=== PATIENT | male | born 1950 | race Caucasian/White ===

== ENCOUNTER 2023-05-06 08:54 | Inpatient (IN) | payer MEDICARE ==
[2023-05-06 09:21] LABS: #Monocytes 0.8 thou/uL (0.11-0.59); #Neutrophils 19.7 thou/uL (1.40-6.50); %Basophils 0.1 % (0.0-1.0); %Lymphocytes 3.4 % (21.0-51.0); %Monocytes 3.7 % (0.0-10.0); %Neutrophils 91.5 % (42.0-75.0); Mean Corpuscular HGB CONC 33.7 g/dL (32.0-36.0); Mean Corpuscular Hemoglobin 32.3 pg (27.0-31.0); Mean Corpuscular Volume 95.6 fl (78.0-98.0); Platelet Count 252 10x3/uL (130-400); RBC Distribution Width 15.9 % (11.5-14.5); Red Blood Cell (RBC) Count 3.41 mill/uL (4.70-6.10); White Blood Cell (WBC) Count 21.5 10x3/uL (4.8-10.8)
[2023-05-06] MEDS ORDERED: Cefepime 2 GM VIAL ONE (09:33)
[2023-05-06 09:52] LABS: ALT (SGPT) 20 U/L (8-55); AST (SGOT) 77 U/L (5-34); Albumin 2.6 g/dL (3.4-4.8); Alkaline Phosphatase 190 U/L (40-110); Anion Gap 15 mmol/L (10-20); BUN (Urea Nitrogen) 19 mg/dL (8.4-25.7); Bilirubin, Total 1.1 mg/dL (0.2-1.2); Calc. Creatinine Clearance 0 mL/min (70-130); Calcium 8.5 mg/dL (7.8-10.44); Carbon Dioxide 24 mmol/L (23-31); Chloride 93 mmol/L (98-107); Estimated GFR 65; Globulin 3.8 g/dL (2.4-3.5); Glucose 101 mg/dL (83-110); Lipase 34 U/L (8-78); Magnesium 1.8 mg/dL (1.6-2.6); Potassium 4.1 mmol/L (3.5-5.1); Protein, Total 6.4 g/dL (5.8-8.1); Sodium 128 mmol/L (136-145)
[2023-05-06 09:53] LABS: INR-International Normal Ratio 2.9; PTT 55.9 sec (22.9-36.1)
[2023-05-06] MEDS ORDERED: Vancomycin 1.5 GRAM/300 ML BAG 1.5 GM in Premix Bag 1 BAG IVPB SCH (10:00)
[2023-05-06] MEDS ORDERED: Acetaminophen 500 MG TAB ONE (10:50)
[2023-05-06 11:15] LABS: Bacteria/HPF None Seen HPF (None Seen); Bilirubin Negative (Negative); Blood, Urine 3+ (Negative); CAUTI Indications for Culture Alt mental st,lethar; Clarity Clear (Clear); Glucose, Urine (Dipstick) Normal (Negative); Ketone, Urine Negative (Negative); Leukocyte 25 Leu/uL (Negative); Nitrite Negative (Negative); Protein, Urine (Dipstick) 30 mg/dL (Neg-Trace); Specific Gravity, Urine 1.038 (1.002-1.036); Squamous Epithelial 0-3 HPF (0-3); Urobilinogen Normal mg/dL (Less than 2); WBC/HPF 0-3 HPF (0-3); pH, Urine 5.5 (5.0-9.0)
[2023-05-06 11:19] LABS: Urine Culture Reflex No No
[2023-05-06] MEDS ORDERED: Ondansetron PF 4 MG/2 ML Vial IVP PRN (11:38)
[2023-05-06] MEDS ORDERED: traZODone HCl 50 MG TAB PO PRN (11:38)
[2023-05-06] MEDS ORDERED: Guaifenesin DM 100-10/5 ML UDCUP PO PRN (11:38)
[2023-05-06] MEDS ORDERED: Furosemide 100 MG in Sodium Chloride 0.9% 100 ML IVPB SCH ×2 (13:00→16:28)
[2023-05-06] MEDS ORDERED: Amiodarone 150 MG, Admixture Fee 1 EACH in Dextrose 5% in Water 100 ML IVPB SCH ×2 (13:30→13:45)
[2023-05-06] MEDS: Amiodarone 450 MG in Dextrose 5% in Water 250 ML IVPB SCH ×2 (13:56→22:55)
[2023-05-06] MEDS: Midodrine HCl 5 MG TAB PO SCH ×2 (15:10→20:12)
[2023-05-06 16:11] LABS: Lactic Acid 4.4 mmol/L (0.5-2.2)
[2023-05-06] MEDS: Furosemide 100 MG, Admixture Fee 1 EACH in Sodium Chloride 0.9% 90 ML IVPB SCH (16:57)
[2023-05-06] MEDS: Senokot S 8.6-50 MG TAB PO SCH (20:12)
[2023-05-06] MEDS: Apixaban 5 MG TAB PO SCH (20:13)
[2023-05-06] MEDS: Transdermal Patch Removal TOP SCH (20:13)
[2023-05-06] MEDS ORDERED: Cefepime 1 GM in Sodium Chloride 0.9% 100 ML IVPB SCH (21:00)
[2023-05-06] MEDS: Vancomycin 1 GM in Premix Bag 1 BAG IVPB SCH (22:55)
[2023-05-06] MEDS: Acetaminophen 325 MG TAB PO PRN (23:04)
[2023-05-07] MEDS: Acetaminophen 325 MG TAB PO PRN ×4 (03:09→20:23)
[2023-05-07 03:43] LABS: #Eosinphils 0.1 thou/uL (0.0-0.7); #Monocytes 0.9 thou/uL (0.11-0.59); #Neutrophils 14.3 thou/uL (1.40-6.50); %Basophils 0.2 % (0.0-1.0); %Eosinophils 0.5 % (0.0-10.0); %Lymphocytes 8.1 % (21.0-51.0); %Monocytes 5.2 % (0.0-10.0); %Neutrophils 85.1 % (42.0-75.0); Hemoglobin 9.9 g/dL (14.0-18.0); Mean Corpuscular HGB CONC 33.2 g/dL (32.0-36.0); Mean Corpuscular Hemoglobin 32.6 pg (27.0-31.0); Mean Platelet Volume 9.4 fL (7.4-10.4); Platelet Count 216 10x3/uL (130-400); RBC Distribution Width 16.2 % (11.5-14.5); Red Blood Cell (RBC) Count 3.04 mill/uL (4.70-6.10); White Blood Cell (WBC) Count 16.8 10x3/uL (4.8-10.8)
[2023-05-07 04:05] LABS: Anion Gap 14 mmol/L (10-20); BUN (Urea Nitrogen) 22 mg/dL (8.4-25.7); Calc. Creatinine Clearance 104 mL/min (70-130); Calcium 8.5 mg/dL (7.8-10.44); Carbon Dioxide 22 mmol/L (23-31); Chloride 96 mmol/L (98-107); Estimated GFR 75; Glucose 107 mg/dL (83-110); Potassium 4.1 mmol/L (3.5-5.1); Sodium 128 mmol/L (136-145)
[2023-05-07] MEDS: Senokot S 8.6-50 MG TAB PO SCH ×2 (07:56→20:24)
[2023-05-07] MEDS: Midodrine HCl 5 MG TAB PO SCH ×3 (07:56→20:24)
[2023-05-07] MEDS: Lidocaine 4% Patch TD SCH (07:57)
[2023-05-07] MEDS: Bisacodyl 10 MG SUPP PR PRN (07:57)
[2023-05-07] MEDS: Apixaban 5 MG TAB PO SCH ×2 (07:57→20:23)
[2023-05-07] MEDS: Cefepime 2 GM in Sodium Chloride 0.9% 100 ML IVPB SCH ×2 (07:57→20:24)
[2023-05-07] MEDS ORDERED: Digoxin 0.5 MG/2 ML AMP SLOW IVP SCH (09:30)
[2023-05-07] MEDS: Vancomycin 1 GM in Premix Bag 1 BAG IVPB SCH (09:53)
[2023-05-07] MEDS ORDERED: Mineral Oil ENEMA PR SCH (10:45)
[2023-05-07] MEDS: Amiodarone 450 MG in Dextrose 5% in Water 250 ML IVPB SCH (14:43)
[2023-05-07] MEDS ORDERED: Albumin 25% 25 GM/100 ML BOT IVPB SCH ×2 (16:30→18:00)
[2023-05-07] MEDS ORDERED: Oxybutynin 5 MG TAB PO SCH (17:00)
[2023-05-08] MEDS: Albumin 25% 25 GM/100 ML BOT IVPB SCH ×4 (00:04→17:30)
[2023-05-08] MEDS: Transdermal Patch Removal TOP SCH ×2 (00:32→21:29)
[2023-05-08] MEDS: Acetaminophen 325 MG TAB PO PRN ×2 (04:00→08:19)
[2023-05-08 04:40] LABS: #Eosinphils 0.2 thou/uL (0.0-0.7); #Monocytes 0.8 thou/uL (0.11-0.59); #Neutrophils 9.6 thou/uL (1.40-6.50); %Basophils 0.3 % (0.0-1.0); %Eosinophils 1.4 % (0.0-10.0); %Lymphocytes 9.1 % (21.0-51.0); %Monocytes 6.9 % (0.0-10.0); %Neutrophils 81.7 % (42.0-75.0); Hemoglobin 8.9 g/dL (14.0-18.0); Mean Corpuscular HGB CONC 33.1 g/dL (32.0-36.0); Mean Corpuscular Hemoglobin 31.9 pg (27.0-31.0); Mean Corpuscular Volume 96.4 fl (78.0-98.0); Mean Platelet Volume 9.4 fL (7.4-10.4); Platelet Count 182 10x3/uL (130-400); Red Blood Cell (RBC) Count 2.79 mill/uL (4.70-6.10); White Blood Cell (WBC) Count 11.7 10x3/uL (4.8-10.8)
[2023-05-08 05:02] LABS: Anion Gap 12 mmol/L (10-20); BUN (Urea Nitrogen) 27 mg/dL (8.4-25.7); Calc. Creatinine Clearance 88 mL/min (70-130); Calcium 8.7 mg/dL (7.8-10.44); Carbon Dioxide 28 mmol/L (23-31); Chloride 93 mmol/L (98-107); Estimated GFR 62; Glucose 94 mg/dL (83-110); Potassium 3.7 mmol/L (3.5-5.1); Sodium 129 mmol/L (136-145)
[2023-05-08] MEDS: Amiodarone 450 MG in Dextrose 5% in Water 250 ML IVPB SCH ×2 (05:05→19:47)
[2023-05-08] MEDS: Lidocaine 4% Patch TD SCH (08:19)
[2023-05-08] MEDS: Cefepime 2 GM in Sodium Chloride 0.9% 100 ML IVPB SCH ×2 (08:19→22:27)
[2023-05-08] MEDS: Senokot S 8.6-50 MG TAB PO SCH ×2 (08:19→21:28)
[2023-05-08] MEDS: Midodrine HCl 5 MG TAB PO SCH ×3 (08:20→21:27)
[2023-05-08] MEDS: Oxybutynin 5 MG TAB PO SCH (08:20)
[2023-05-08] MEDS: VANCOMYCIN 1.25 GM/250 ML BAG 1.25 GM in Premix Bag 1 BAG IVPB SCH (10:21)
[2023-05-08] MEDS ORDERED: ALPRAZolam 0.25 MG TAB PO SCH ×2 (11:00→21:00)
[2023-05-08] MEDS ORDERED: Midodrine HCl 5 MG TAB PO SCH (17:24)
[2023-05-08] MEDS: ALPRAZolam 0.25 MG TAB PO SCH (21:27)
[2023-05-09] MEDS: Furosemide 100 MG, Admixture Fee 1 EACH in Sodium Chloride 0.9% 90 ML IVPB SCH (02:41)
[2023-05-09 03:47] LABS: #Eosinphils 0.2 thou/uL (0.0-0.7); #Monocytes 0.9 thou/uL (0.11-0.59); #Neutrophils 7.5 thou/uL (1.40-6.50); %Basophils 0.3 % (0.0-1.0); %Lymphocytes 12.4 % (21.0-51.0); %Monocytes 9.3 % (0.0-10.0); %Neutrophils 75.3 % (42.0-75.0); Hemoglobin 7.1 g/dL (14.0-18.0); Mean Corpuscular HGB CONC 32.7 g/dL (32.0-36.0); Mean Corpuscular Hemoglobin 32.3 pg (27.0-31.0); Mean Corpuscular Volume 98.6 fl (78.0-98.0); Mean Platelet Volume 9.2 fL (7.4-10.4); Platelet Count 158 10x3/uL (130-400); RBC Distribution Width 16.2 % (11.5-14.5); White Blood Cell (WBC) Count 9.9 10x3/uL (4.8-10.8)
[2023-05-09 04:11] LABS: Anion Gap 16 mmol/L (10-20); BUN (Urea Nitrogen) 30 mg/dL (8.4-25.7); Calc. Creatinine Clearance 71 mL/min (70-130); Calcium 8.7 mg/dL (7.8-10.44); Carbon Dioxide 25 mmol/L (23-31); Chloride 96 mmol/L (98-107); Estimated GFR 48; Glucose 106 mg/dL (83-110); Potassium 3.5 mmol/L (3.5-5.1); Sodium 133 mmol/L (136-145)
[2023-05-09 06:51] LABS: Hemoglobin 7.4 g/dL (14.0-18.0); Mean Corpuscular HGB CONC 32.9 g/dL (32.0-36.0); Mean Corpuscular Hemoglobin 32.5 pg (27.0-31.0); Mean Corpuscular Volume 98.7 fl (78.0-98.0); Mean Platelet Volume 9.5 fL (7.4-10.4); Platelet Count 145 10x3/uL (130-400); RBC Distribution Width 16.4 % (11.5-14.5); Red Blood Cell (RBC) Count 2.28 mill/uL (4.70-6.10); White Blood Cell (WBC) Count 9.3 10x3/uL (4.8-10.8)
[2023-05-09] MEDS: Cefepime 1 GM in Sodium Chloride 0.9% 100 ML IVPB SCH ×2 (08:28→21:02)
[2023-05-09] MEDS: Lidocaine 4% Patch TD SCH (08:29)
[2023-05-09] MEDS: ALPRAZolam 0.25 MG TAB PO SCH ×2 (08:29→21:04)
[2023-05-09] MEDS: Acetaminophen 325 MG TAB PO PRN (08:30)
[2023-05-09] MEDS: Midodrine HCl 5 MG TAB PO SCH ×3 (08:30→21:03)
[2023-05-09] MEDS: Senokot S 8.6-50 MG TAB PO SCH ×2 (08:31→21:03)
[2023-05-09] MEDS: Oxybutynin 5 MG TAB PO SCH (08:31)
[2023-05-09] MEDS: Albumin 25% 25 GM/100 ML BOT IVPB SCH ×3 (09:16→18:10)
[2023-05-09] MEDS: Amiodarone 450 MG in Dextrose 5% in Water 250 ML IVPB SCH (11:04)
[2023-05-09] MEDS: VANCOMYCIN 1.25 GM/250 ML BAG 1.25 GM in Premix Bag 1 BAG IVPB SCH (11:04)
[2023-05-09] MEDS: Transdermal Patch Removal TOP SCH (21:08)
[2023-05-10] MEDS: Furosemide 100 MG, Admixture Fee 1 EACH in Sodium Chloride 0.9% 90 ML IVPB SCH (00:29)
[2023-05-10] MEDS: Amiodarone 450 MG in Dextrose 5% in Water 250 ML IVPB SCH (00:29)
[2023-05-10] MEDS: Albumin 25% 25 GM/100 ML BOT IVPB SCH ×3 (00:30→08:25)
[2023-05-10 03:58] LABS: Platelet Count 137 10x3/uL (130-400)
[2023-05-10 04:20] LABS: Anion Gap 15 mmol/L (10-20); BUN (Urea Nitrogen) 31 mg/dL (8.4-25.7); Calc. Creatinine Clearance 71 mL/min (70-130); Calcium 8.7 mg/dL (7.8-10.44); Carbon Dioxide 25 mmol/L (23-31); Chloride 96 mmol/L (98-107); Estimated GFR 47; Glucose 117 mg/dL (83-110); Potassium 2.9 mmol/L (3.5-5.1); Sodium 133 mmol/L (136-145)
[2023-05-10] MEDS: Acetaminophen 325 MG TAB PO PRN ×2 (04:30→21:01)
[2023-05-10] MEDS ORDERED: Potassium Bicarbonate/Cit Ac 20 MEQ TAB PO SCH (05:45)
[2023-05-10 05:48] LABS: Magnesium 1.9 mg/dL (1.6-2.6)
[2023-05-10] MEDS ORDERED: Albumin 25% 100 ML ONE (08:18)
[2023-05-10] MEDS: Midodrine HCl 5 MG TAB PO SCH ×3 (08:23→21:00)
[2023-05-10] MEDS: ALPRAZolam 0.25 MG TAB PO SCH ×2 (08:24→21:01)
[2023-05-10] MEDS: Oxybutynin 5 MG TAB PO SCH (08:24)
[2023-05-10] MEDS: Lidocaine 4% Patch TD SCH (08:24)
[2023-05-10] MEDS: Cefepime 1 GM in Sodium Chloride 0.9% 100 ML IVPB SCH (08:24)
[2023-05-10] MEDS: Senokot S 8.6-50 MG TAB PO SCH ×2 (08:24→21:00)
[2023-05-10 11:13] LABS: Vancomycin, Trough 24.4 ug/mL
[2023-05-10] MEDS ORDERED: Potassium Chloride 20 MEQ in Premix Bag 1 BAG IVPB SCH (12:00)
[2023-05-10] MEDS: VANCOMYCIN 1.25 GM/250 ML BAG 1.25 GM in Premix Bag 1 BAG IVPB SCH (12:39)
[2023-05-10] MEDS ORDERED: Metolazone 5 MG TAB PO SCH (15:00)
[2023-05-10] MEDS: Amiodarone 200 MG TAB PO SCH (21:00)
[2023-05-10] MEDS: Apixaban 5 MG TAB PO SCH (21:00)
[2023-05-10] MEDS: Bisacodyl 10 MG SUPP PR PRN (21:02)
[2023-05-10] MEDS: Transdermal Patch Removal TOP SCH (21:49)
[2023-05-11 05:07] LABS: #Basophils 0.1 thou/uL (0.0-0.2); #Eosinphils 0.3 thou/uL (0.0-0.7); #Monocytes 1.3 thou/uL (0.11-0.59); #Neutrophils 8.9 thou/uL (1.40-6.50); %Basophils 0.4 % (0.0-1.0); %Eosinophils 2.4 % (0.0-10.0); %Lymphocytes 10.6 % (21.0-51.0); %Monocytes 11.1 % (0.0-10.0); %Neutrophils 74.4 % (42.0-75.0); Hemoglobin 8.5 g/dL (14.0-18.0); Mean Corpuscular HGB CONC 33.5 g/dL (32.0-36.0); Mean Corpuscular Hemoglobin 32.7 pg (27.0-31.0); Mean Corpuscular Volume 97.7 fl (78.0-98.0); Platelet Count 150 10x3/uL (130-400); RBC Distribution Width 16.5 % (11.5-14.5); White Blood Cell (WBC) Count 11.9 10x3/uL (4.8-10.8)
[2023-05-11 05:56] LABS: Anion Gap 13 mmol/L (10-20); BUN (Urea Nitrogen) 31 mg/dL (8.4-25.7); Calc. Creatinine Clearance 67 mL/min (70-130); Calcium 8.7 mg/dL (7.8-10.44); Carbon Dioxide 28 mmol/L (23-31); Chloride 96 mmol/L (98-107); Estimated GFR 44; Glucose 95 mg/dL (83-110); Potassium 2.9 mmol/L (3.5-5.1); Sodium 134 mmol/L (136-145)
[2023-05-11] MEDS: Furosemide 100 MG, Admixture Fee 1 EACH in Sodium Chloride 0.9% 90 ML IVPB SCH (06:13)
[2023-05-11] MEDS: Amiodarone 200 MG TAB PO SCH ×2 (09:57→21:40)
[2023-05-11] MEDS: ALPRAZolam 0.25 MG TAB PO SCH ×2 (09:57→21:41)
[2023-05-11] MEDS: Midodrine HCl 5 MG TAB PO SCH ×3 (09:58→21:42)
[2023-05-11] MEDS: Lidocaine 4% Patch TD SCH (09:58)
[2023-05-11] MEDS: Apixaban 5 MG TAB PO SCH ×2 (09:58→21:40)
[2023-05-11] MEDS: Oxybutynin 5 MG TAB PO SCH (09:59)
[2023-05-11] MEDS: Senokot S 8.6-50 MG TAB PO SCH ×2 (09:59→21:41)
[2023-05-11 13:21] LABS: Magnesium 1.8 mg/dL (1.6-2.6)
[2023-05-11] MEDS: Potassium Chloride 20 MEQ in Premix Bag 1 BAG IVPB SCH ×2 (15:33→19:22)
[2023-05-11] MEDS: Transdermal Patch Removal TOP SCH (21:43)
[2023-05-11] MEDS: Acetaminophen 325 MG TAB PO PRN (21:54)
[2023-05-12] MEDS: Furosemide 100 MG, Admixture Fee 1 EACH in Sodium Chloride 0.9% 90 ML IVPB SCH (05:19)
[2023-05-12 08:07] LABS: Anion Gap 12 mmol/L (10-20); BUN (Urea Nitrogen) 33 mg/dL (8.4-25.7); Calc. Creatinine Clearance 58 mL/min (70-130); Calcium 8.7 mg/dL (7.8-10.44); Carbon Dioxide 32 mmol/L (23-31); Chloride 91 mmol/L (98-107); Estimated GFR 38; Glucose 108 mg/dL (83-110); Potassium 2.9 mmol/L (3.5-5.1); Sodium 132 mmol/L (136-145)
[2023-05-12] MEDS: ALPRAZolam 0.25 MG TAB PO SCH ×2 (10:25→20:15)
[2023-05-12] MEDS: Amiodarone 200 MG TAB PO SCH ×2 (10:25→20:15)
[2023-05-12] MEDS: Midodrine HCl 5 MG TAB PO SCH ×3 (10:26→20:15)
[2023-05-12] MEDS: Lidocaine 4% Patch TD SCH (10:26)
[2023-05-12] MEDS: Oxybutynin 5 MG TAB PO SCH (10:26)
[2023-05-12] MEDS: Apixaban 5 MG TAB PO SCH ×2 (10:26→20:15)
[2023-05-12] MEDS: Senokot S 8.6-50 MG TAB PO SCH ×2 (10:26→20:15)
[2023-05-12] MEDS: Potassium Chloride 20 MEQ in Premix Bag 1 BAG IVPB SCH ×2 (10:28→18:23)
[2023-05-12] MEDS: Bumetanide 1 MG/4 ML VIAL IVP SCH (14:36)
[2023-05-12] MEDS: Transdermal Patch Removal TOP SCH (20:17)
[2023-05-13] MEDS: Potassium Chloride 20 MEQ in Premix Bag 1 BAG IVPB SCH ×3 (00:28→12:38)
[2023-05-13] MEDS: Bumetanide 1 MG/4 ML VIAL IVP SCH ×2 (05:05→14:49)
[2023-05-13] MEDS: Acetaminophen 325 MG TAB PO PRN ×2 (05:06→21:39)
[2023-05-13 08:19] LABS: #Basophils 0.1 thou/uL (0.0-0.2); #Eosinphils 0.2 thou/uL (0.0-0.7); #Neutrophils 8.5 thou/uL (1.40-6.50); %Basophils 0.5 % (0.0-1.0); %Eosinophils 1.5 % (0.0-10.0); %Lymphocytes 11.4 % (21.0-51.0); %Monocytes 8.9 % (0.0-10.0); %Neutrophils 76.5 % (42.0-75.0); Hemoglobin 8.6 g/dL (14.0-18.0); Mean Corpuscular HGB CONC 33.3 g/dL (32.0-36.0); Mean Corpuscular Hemoglobin 32.6 pg (27.0-31.0); Mean Corpuscular Volume 97.7 fl (78.0-98.0); Mean Platelet Volume 9.7 fL (7.4-10.4); Platelet Count 162 10x3/uL (130-400); RBC Distribution Width 16.7 % (11.5-14.5); Red Blood Cell (RBC) Count 2.64 mill/uL (4.70-6.10); White Blood Cell (WBC) Count 11.1 10x3/uL (4.8-10.8)
[2023-05-13 08:43] LABS: Anion Gap 4 mmol/L (10-20); BUN (Urea Nitrogen) 36 mg/dL (8.4-25.7); Calc. Creatinine Clearance 52 mL/min (70-130); Calcium 8.5 mg/dL (7.8-10.44); Carbon Dioxide 32 mmol/L (23-31); Chloride 92 mmol/L (98-107); Estimated GFR 34; Glucose 116 mg/dL (83-110); Potassium 2.7 mmol/L (3.5-5.1); Sodium 125 mmol/L (136-145)
[2023-05-13] MEDS ORDERED: Potassium Chloride 40 MEQ in Premix Bag 1 BAG IVPB SCH (09:30)
[2023-05-13] MEDS: Apixaban 5 MG TAB PO SCH ×2 (09:47→21:39)
[2023-05-13] MEDS: Amiodarone 200 MG TAB PO SCH ×2 (09:47→21:38)
[2023-05-13] MEDS: Lidocaine 4% Patch TD SCH (09:47)
[2023-05-13] MEDS: ALPRAZolam 0.25 MG TAB PO SCH ×2 (09:47→21:37)
[2023-05-13] MEDS: Midodrine HCl 5 MG TAB PO SCH ×3 (09:48→21:39)
[2023-05-13] MEDS: Oxybutynin 5 MG TAB PO SCH (09:48)
[2023-05-13] MEDS: Senokot S 8.6-50 MG TAB PO SCH ×2 (09:48→21:39)
[2023-05-13] MEDS: Transdermal Patch Removal TOP SCH (21:40)
[2023-05-14 04:40] LABS: Anion Gap 15 mmol/L (10-20); BUN (Urea Nitrogen) 41 mg/dL (8.4-25.7); Calc. Creatinine Clearance 46 mL/min (70-130); Calcium 8.6 mg/dL (7.8-10.44); Carbon Dioxide 30 mmol/L (23-31); Chloride 91 mmol/L (98-107); Estimated GFR 31; Glucose 106 mg/dL (83-110); Potassium 3.2 mmol/L (3.5-5.1); Sodium 133 mmol/L (136-145)
[2023-05-14] MEDS ORDERED: Potassium Chloride 40 MEQ in Premix Bag 1 BAG IVPB SCH (07:45)
[2023-05-14] MEDS: Lidocaine 4% Patch TD SCH (07:57)
[2023-05-14] MEDS: Potassium Chloride 20 MEQ in Premix Bag 1 BAG IVPB SCH ×2 (07:57→10:08)
[2023-05-14] MEDS: Amiodarone 200 MG TAB PO SCH ×2 (07:58→21:11)
[2023-05-14] MEDS: Midodrine HCl 5 MG TAB PO SCH ×3 (07:58→21:11)
[2023-05-14] MEDS: Oxybutynin 5 MG TAB PO SCH (07:58)
[2023-05-14] MEDS: ALPRAZolam 0.25 MG TAB PO SCH ×2 (07:58→21:13)
[2023-05-14] MEDS: Senokot S 8.6-50 MG TAB PO SCH ×2 (07:59→21:12)
[2023-05-14] MEDS: Apixaban 5 MG TAB PO SCH ×2 (07:59→21:13)
[2023-05-14] MEDS: Bisacodyl 10 MG SUPP PR PRN (11:54)
[2023-05-14] MEDS ORDERED: Mineral Oil ENEMA PR SCH (14:00)
[2023-05-14] MEDS: Acetaminophen 325 MG TAB PO PRN (21:12)
[2023-05-14] MEDS: Transdermal Patch Removal TOP SCH (21:14)
[2023-05-15 06:40] LABS: Anion Gap 13 mmol/L (10-20); BUN (Urea Nitrogen) 46 mg/dL (8.4-25.7); Calc. Creatinine Clearance 44 mL/min (70-130); Calcium 8.5 mg/dL (7.8-10.44); Carbon Dioxide 33 mmol/L (23-31); Chloride 87 mmol/L (98-107); Estimated GFR 28; Glucose 93 mg/dL (83-110); Potassium 3.4 mmol/L (3.5-5.1); Sodium 130 mmol/L (136-145)
[2023-05-15] MEDS: Oxybutynin 5 MG TAB PO SCH (08:26)
[2023-05-15] MEDS: Midodrine HCl 5 MG TAB PO SCH ×3 (08:26→20:36)
[2023-05-15] MEDS: Senokot S 8.6-50 MG TAB PO SCH ×2 (08:26→20:37)
[2023-05-15] MEDS: ALPRAZolam 0.25 MG TAB PO SCH ×2 (08:26→20:36)
[2023-05-15] MEDS: Amiodarone 200 MG TAB PO SCH ×2 (08:26→20:37)
[2023-05-15] MEDS: Apixaban 5 MG TAB PO SCH ×2 (08:26→20:36)
[2023-05-15] MEDS: Acetaminophen 325 MG TAB PO PRN ×2 (08:26→20:36)
[2023-05-15] MEDS: Lidocaine 4% Patch TD SCH (08:27)
[2023-05-15] MEDS: Bisacodyl 10 MG SUPP PR PRN (08:27)
[2023-05-15 10:54] VITALS: BMI 32.8
[2023-05-15 16:37] VITALS: BP 123/83
[2023-05-15] MEDS: Transdermal Patch Removal TOP SCH (20:37)
[2023-05-16] MEDS ORDERED: fentaNYL 50 mcg/mL 1 mL Vial SLOW IVP SCH (02:15)
[2023-05-16 04:45] LABS: Anion Gap 16 mmol/L (10-20); BUN (Urea Nitrogen) 52 mg/dL (8.4-25.7); Calc. Creatinine Clearance 43 mL/min (70-130); Calcium 8.7 mg/dL (7.8-10.44); Carbon Dioxide 29 mmol/L (23-31); Chloride 90 mmol/L (98-107); Estimated GFR 28; Glucose 94 mg/dL (83-110); Potassium 3.7 mmol/L (3.5-5.1); Sodium 131 mmol/L (136-145)
[2023-05-16] MEDS ORDERED: Fentanyl 100 MCG/2 ML VIAL SLOW IVP PRN (07:21)
[2023-05-16] MEDS: Acetaminophen 325 MG TAB PO PRN (07:22)
[2023-05-16] MEDS: Oxybutynin 5 MG TAB PO SCH (07:23)
[2023-05-16] MEDS: Midodrine HCl 5 MG TAB PO SCH (07:23)
[2023-05-16] MEDS: Amiodarone 200 MG TAB PO SCH (07:23)
[2023-05-16] MEDS: Apixaban 5 MG TAB PO SCH (07:23)
[2023-05-16] MEDS: ALPRAZolam 0.25 MG TAB PO SCH (07:23)
[2023-05-16] MEDS: Lidocaine 4% Patch TD SCH (07:24)
[2023-05-16] MEDS: Senokot S 8.6-50 MG TAB PO SCH (07:24)
[2023-05-16 07:34] VITALS: TEMP 97.7
[2023-05-16] MEDS: fentaNYL 50 mcg/mL 1 mL Vial SLOW IVP PRN ×2 (07:34→09:16)
== END 2023-05-16 10:38 | disposition hospice, home (50) | DRG 542 ==
LOC: ERS 08:54 → IMCU/EMU 11:36
PROVIDERS: ADMIT Internal Medicine; ATTEND Internal Medicine
PROC: 3E03329 Introduction of Other Anti-infective into Peripheral Vein, Percutaneous Approach (ICD-10-PCS; 2023-05-06)
PROC: 30233J1 Transfusion of Nonautologous Serum Albumin into Peripheral Vein, Percutaneous Approach (ICD-10-PCS; 2023-05-07)
PROC: 30233N1 Transfusion of Nonautologous Red Blood Cells into Peripheral Vein, Percutaneous Approach (ICD-10-PCS; principal; 2023-05-09)
DX: M84.58XA Pathological fracture in neoplastic disease, other specified site, initial encounter for fracture (principal); J96.01 Acute respiratory failure with hypoxia; C79.51 Secondary malignant neoplasm of bone; L03.116 Cellulitis of left lower limb; D62 Acute posthemorrhagic anemia; C64.1 Malignant neoplasm of right kidney, except renal pelvis; N17.9 Acute kidney failure, unspecified; J81.1 Chronic pulmonary edema; E87.1 Hypo-osmolality and hyponatremia; E87.3 Alkalosis; R18.8 Other ascites; I51.89 Other ill-defined heart diseases; Z51.5 Encounter for palliative care; Z66 Do not resuscitate; N18.30 Chronic kidney disease, stage 3 unspecified; R33.9 Retention of urine, unspecified; R53.81 Other malaise; I95.9 Hypotension, unspecified; E88.09 Other disorders of plasma-protein metabolism, not elsewhere classified; R63.5 Abnormal weight gain; I48.0 Paroxysmal atrial fibrillation; F41.9 Anxiety disorder, unspecified; K59.00 Constipation, unspecified; E87.6 Hypokalemia; R31.0 Gross hematuria; D63.1 Anemia in chronic kidney disease; I12.9 Hypertensive chronic kidney disease with stage 1 through stage 4 chronic kidney disease, or unspecified chronic kidney disease; Z96.641 Presence of right artificial hip joint; Z79.01 Long term (current) use of anticoagulants; Z79.899 Other long term (current) drug therapy; Z87.891 Personal history of nicotine dependence; Z80.0 Family history of malignant neoplasm of digestive organs; Z68.31 Body mass index [BMI] 31.0-31.9, adult
CPT/HCPCS: 36415; 36430; 71045; 71250; 74177; 80048; 80053; 80202; 81001; 82570; 83605; 83690; 83735; 83880; 84145; 84156; 84484; 85014; 85018; 85025; 85049; 85610; 85730; 86850; 86870; 86880; 86900; 86901; 86922; 87040; 87086; 93005; 93306; 96361; 96365; 96366; 96367; 97139; J0282; J0692; J1160; J1940; J2405; J3010; J3370; J3370-JW; J3480; J3490; J7070; P9016; P9047